=== PATIENT | female | born 1970 | race Two or more races ===

== ENCOUNTER 2016-05-21 21:17 | Emergency (ER) | payer MEDICAID ==
[~2016-05-21] VITALS: Ht 154.9 cm; Wt 81.6 kg
[~2016-05-21 21:17] MED LIST: AZITHROMYCIN250 MG ORAL; CIPROFLOXACIN500 M2 ORAL; CORICIDIN HBP1 EACH PO; IBUPROFEN600 MG ORAL; KLONOPIN1 MG ORAL
[2016-05-21] MEDS ORDERED: NKM (21:25)
[2016-05-21 21:37] VITALS: BP 151/80
--- NOTE | 2016-05-21 21:40 | Emergency Room Report ---
History of Present Illness General Chief Complaint: Hypertension Source: Patient Present Illness HPI Patient presents to weeks of symptoms. She feels chills weakness and right- sided headache. She's been urinating frequently and also has polydipsia but drinking a lot of water. Her sister has diabetes she has no diagnosis. She had high blood pressure at home and when she was checked in triage. She's under more stress at this time. Denies any chest pain, cough, sore throat, shortness of breath. The weakness is generalized and not one side or the other. Tingling on the right side of her head also. She has been treated for anxiety in the past. No SI/HI. Post menopausal 2 years. Allergies: Coded Allergies: NO KNOWN ALLERGIES (Unverified Allergy, Unknown, 04/02/15) Patient History Past Medical History: see triage record Social History: Denies: alcohol use, drug use, smoking Social History Narrative [facility] Reviewed Nursing Documentation: PMH: Agreed, PSxH: Agreed Nursing Documentation-PMH Past Medical History: No Stated History Review of Systems All Other Systems: negative except mentioned in HPI Physical Exam Vital Signs Date Time Temp Pulse Resp B/P Pulse Ox O2 Delivery O2 Flow Rate FiO2 05/21/16 21:21 97.9 87 16 151/80 100 Room Air Sp02 EP Interpretation: reviewed, normal General Appearance: well appearing, no apparent distress, GCS 15 Head: normocephalic, atraumatic Eyes: bilateral eye PERRL, bilateral eye normal inspection ENT: moist mucus membranes Neck: supple Respiratory: lungs clear, normal breath sounds Cardiovascular #1: regular rate, rhythm Cardiovascular #2: 2+ radial (R) Gastrointestinal: normal inspection, normal bowel sounds, non tender, no mass, non-distended Musculoskeletal: back normal, gait/station normal, normal range of motion Neurologic: alert, oriented x3, 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 She measured her blood pressure that was high at home. Differential includes hypertension, acute coronary syndrome, electrolye abnormalities, urinary tract infection or infection from other source, stress, anxiety, perimenopausal symptoms amongst others. Urgent/emergent evaluation to exclude acute coronary syndrome and other critical electrolyte abnormalities is undertaken. The patient will receive IV hydration and treatment with Toradol. Labs are significant for pyuria, glucose of 120. Chest x-ray and EKG are normal. The patient is improved and discussion about treatment stress and urinary tract infection was undertaken. The patient is stable for outpatient observation and treatment. Laboratory Tests Test 05/21/16 21:47 05/21/16 21:53 White Blood Count 11.3 K/UL (4.8-10.8) H Red Blood Count 4.82 M/UL (4.20-5.40) Hemoglobin 13.8 G/DL (12.0-16.0) Hematocrit 43.8 % (37.0-47.0) Mean Corpuscular Volume 91 FL (80-99) Mean Corpuscular Hemoglobin 28.6 PG (27.0-31.0) Mean Corpuscular Hemoglobin Concent 31.5 G/DL (32.0-36.0) L Red Cell Distribution Width 11.8 % (11.6-14.8) Platelet Count 366 K/UL (150-450) Mean Platelet Volume 6.6 FL (6.5-10.1) Neutrophils (%) (Auto) 54.7 % (45.0-75.0) Lymphocytes (%) (Auto) 36.6 % (20.0-45.0) Monocytes (%) (Auto) 6.1 % (1.0-10.0) Eosinophils (%) (Auto) 1.7 % (0.0-3.0) Basophils (%) (Auto) 0.9 % (0.0-2.0) Erythrocyte Sedimentation Rate 54 MM/HR (0-20) H Prothrombin Time 10.2 SEC (9.30-11.50) Prothrombin Time INR 1.0 (0.9-1.1) PTT 29 SEC (23-33) Sodium Level 141 mEQ/L (135-145) Potassium Level 4.2 mEQ/L (3.4-4.9) Chloride Level 102 mEQ/L (98-107) Carbon Dioxide Level 26 mEQ/L (20-30) Anion Gap 13 (5-15) Blood Urea Nitrogen 20 mg/dL (7-23) Creatinine 0.6 mg/dL (0.5-0.9) Estimate Glomerular Filtration Rate > 60 mL/min (>60) Glucose Level 120 mg/dL (74-106) H Lactic Acid Level 0.60 mmol/L (0.66-2.22) L Calcium Level 9.6 mg/dL (8.6-10.2) Total Bilirubin < 0.2 mg/dL (0.0-1.2) Aspartate Amino Transferase (AST) 15 U/L (5-40) Alanine Aminotransferase (ALT) 14 U/L (3-33) Alkaline Phosphatase 67 U/L (35-104) Total Creatine Kinase 85 U/L (26-140) Total Protein 7.6 g/dL (6.6-8.7) Albumin 4.3 g/dL (3.5-5.2) Globulin 3.3 g/dL Albumin/Globulin Ratio 1.3 (1.0-2.7) Urine Color Pale yellow Urine Appearance Clear Urine pH 7 (4.5-8.0) Urine Specific [place] 1.010 (1.005-1.035) Urine Protein Negative (NEGATIVE) Urine Glucose (UA) Negative (NEGATIVE) Urine Ketones Negative (NEGATIVE) Urine Occult Blood 1+ (NEGATIVE) H Urine Nitrite Negative (NEGATIVE) Urine Bilirubin Negative (NEGATIVE) Urine Urobilinogen Normal MG/DL (0.0-1.0) Urine Leukocyte Esterase 3+ (NEGATIVE) H Urine RBC 0-2 /HPF (0 - 2) Urine WBC 5-10 /HPF (0 - 2) H Urine Squamous Epithelial Cells Occasional /LPF Urine Bacteria Occasional /HPF (NONE) Microbiology Date/Time Source Procedure Growth Status 05/21/16 21:53 Nasal Nares Influenza Types A,B Antigen (YANELIS) - Final Complete EKG Diagnostic Results Rate: normal ST Segments: no acute changes Rhythm Strip Diag. Results EP Interpretation: yes Rhythm: NSR, no PVC's, no ectopy Chest X-Ray Diagnostic Results EP Interpretation: Yes Findings: no consolidation, no effusion, no pneumothorax, no acute cardiopulmonary disease Number of Views: 1 Last Vital Signs Date Time Temp Pulse Resp B/P Pulse Ox O2 Delivery O2 Flow Rate FiO2 05/22/16 00:46 97.2 87 18 120/67 98 Room Air Status: improved Disposition: HOME, SELF-CARE Condition: Improved Scripts Lorazepam* (ATIVAN*) 0.5 Mg Tablet 0.5 MG ORAL THREE TIMES A DAY Y for stress/anxiety, #6 TAB Prov: Rj Robert M.D. 05/22/16 Nitrofurantoin Monohyd/M-Cryst* (MACROBID 100 MG*) 100 Mg Capsule 100 MG ORAL EVERY 12 HOURS, #14 CAP Prov: Rj Robert M.D. 05/22/16 Rj Robert M.D. May 21, 2016 21:40
[2016-05-21] MEDS ORDERED: Ketorolac 30mg Inj IV ONE (21:45)
[2016-05-21 21:59] LABS: BASOPHILS % (AUTO) 0.9 % (0.0-2.0); EOSINOPHILS % (AUTO) 1.7 % (0.0-3.0); LYMPHOCYTES % (AUTO) 36.6 % (20.0-45.0); MEAN CORPUSCULAR HEMOGLOBIN 28.6 PG (27.0-31.0); MEAN CORPUSCULAR HGB CONC 31.5 G/DL (32.0-36.0); MEAN CORPUSCULAR VOLUME 91 FL (80-99); MEAN PLATELET VOLUME 6.6 FL (6.5-10.1); MONOCYTES % (AUTO) 6.1 % (1.0-10.0); NEUTROPHILS % (AUTO) 54.7 % (45.0-75.0); PLATELET COUNT 366 K/UL (150-450); RED BLOOD COUNT 4.82 M/UL (4.20-5.40); RED CELL DISTRIBUTION WIDTH 11.8 % (11.6-14.8); WHITE BLOOD COUNT 11.3 K/UL (4.8-10.8)
[2016-05-21 22:10] LABS: APPEARANCE,URINE CLEAR; KETONES,URINE NEGATIVE (NEGATIVE); LEUKOCYTE ESTERASE ,URINE 3+ (NEGATIVE); NITRITE,URINE NEGATIVE (NEGATIVE); PH,URINE 7 (4.5-8.0); PROTEIN,URINE NEGATIVE (NEGATIVE); UROBILINOGEN,URINE NORMAL MG/DL (0.0-1.0)
[2016-05-21 22:11] LABS: PROTHROMBIN TIME 10.2 SEC (9.30-11.50)
[2016-05-21 22:18] VITALS: BP 132/73
[2016-05-21 22:21] LABS: ALANINE AMINOTRANSFERASE 14 U/L (3-33); ALBUMIN/GLOBULIN RATIO 1.3 (1.0-2.7); ANION GAP 13 (5-15); ASPARTATE AMINO TRANSFERASE 15 U/L (5-40); CALCIUM 9.6 mg/dL (8.6-10.2); CARBON DIOXIDE 26 mEQ/L (20-30); CHLORIDE 102 mEQ/L (98-107); CREATININE 0.6 mg/dL (0.5-0.9); GLOMERULAR FILTRATION RATE > 60 mL/min (>60); HEMOLYSIS 2; POTASSIUM 4.2 mEQ/L (3.4-4.9); SODIUM 141 mEQ/L (135-145); TOTAL PROTEIN 7.6 g/dL (6.6-8.7)
[2016-05-21 22:42] LABS: RBC,URINE 0-2 /HPF (0 - 2)
[2016-05-21 22:44] LABS: BACTERIA,URINE OCCASIONAL /HPF; SQUAMOUS EPITHELIAL CELL,UR OCCASIONAL /LPF (NONE/OCC)
[2016-05-21 23:05] LABS: ERYTHROCYTE SEDIMENTATION RATE 54 MM/HR (0-20)
[2016-05-21 23:18] VITALS: BP 121/71
[2016-05-21] MEDS ORDERED: cefTRIAXone 1 GM in NS 55 ML IVPB ONE (23:30)
[2016-05-22 00:30] VITALS: BP 120/67
[2016-05-22] MEDS ORDERED: NITROFURANTOIN100 M2 ORAL (00:30)
[2016-05-22] MEDS ORDERED: ATIVAN0.5 MG ORAL (00:30)
[2016-05-22 00:46] VITALS: BP 120/67
--- NOTE | 2016-05-22 08:48 | Diagnostic Imaging Report ---
Indication: Chest pain Technique: Single portable AP view of the chest. Findings: Comparison: 04/11/2015 The bones and extra pulmonary soft tissues, cardiomediastinal silhouette, pulmonary vasculature and parenchyma, and pleural surfaces remain unremarkable. IMPRESSION: Negative portable AP chest, unchanged.
--- NOTE | 2016-05-24 15:53 | Cardiology Report ---
APPROVED REPORT EKG Measurement Heart [id number] Normal sinus rhythm Nonspecific ST abnormality Abnormal ECG
== END 2016-05-22 00:45 | disposition home or self-care (01) ==
LOC: EMR 21:38
DX: N30.00 Acute cystitis without hematuria (principal); F43.9 Reaction to severe stress, unspecified; R51 Headache; R53.1 Weakness; Z83.3 Family history of diabetes mellitus; R03.0 Elevated blood-pressure reading, without diagnosis of hypertension
CPT/HCPCS: 36415; 71010; 80053; 81003; 82550; 83605; 85025; 85610; 85651; 85730; 86710; 93005; 96374; 96375; 99284; J0696; J1885

== ENCOUNTER 2017-08-21 23:15 | Emergency (ER) | payer MEDICAID ==
[~2017-08-21] VITALS: Ht 154.9 cm; Wt 81.6 kg
[~2017-08-21 23:15] MED LIST changes: +ATIVAN0.5 MG ORAL; +NITROFURANTOIN100 M2 ORAL; +NKM
[2017-08-21] MEDS ORDERED: Lidocaine 2% Visc 15ml soln ONE (23:36)
[2017-08-21] MEDS ORDERED: Lidocaine 2% Visc 15ml soln ORAL ONE (23:45)
[2017-08-21 23:48] VITALS: BP 139/83
[2017-08-22 00:24] VITALS: BP 138/83
--- NOTE | 2017-08-22 01:01 | Emergency Room Report ---
History of Present Illness General Chief Complaint: Earache Source: Patient Present Illness HPI 47-year-old female presents ED for evaluation. Brought in by EMS stating there is a bug in her ear. Happened sometime today. Patient denies any pain. Denies any change in hearing. Denies any fevers or chills. No other aggravating relieving factors. Denies any other associated symptoms Allergies: Coded Allergies: NO KNOWN ALLERGIES (Unverified Allergy, Unknown, 04/02/15) Patient History Past Medical History: none Past Surgical History: none Pertinent Family History: none Social History: Denies: smoking, alcohol use, drug use Last Menstrual Period: "no period since 5 years ago" Now: No Immunizations: UTD Reviewed Nursing Documentation: PMH: Agreed; PSxH: Agreed Nursing Documentation-PMH Past Medical History: No Stated History Review of Systems All Other Systems: negative except mentioned in HPI Physical Exam Vital Signs Date Time Temp Pulse Resp B/P (MAP) Pulse Ox O2 Delivery O2 Flow Rate FiO2 08/21/17 23:13 97.9 16 18 139/83 98 Room Air 97.9 Sp02 EP Interpretation: reviewed, normal General Appearance: no apparent distress, alert, GCS 15, non-toxic Head: normocephalic Eyes: bilateral eye normal inspection, bilateral eye PERRL ENT: hearing grossly normal, normal pharynx, no angioedema, normal voice, other - insect in R ear canal Neck: normal inspection Respiratory: normal inspection Cardiovascular #1: normal inspection Gastrointestinal: normal inspection Rectal: deferred Genitourinary: normal inspection Musculoskeletal: normal inspection Neurologic: alert, oriented x3, responsive, motor strength/tone normal, sensory intact, speech normal Psychiatric: judgement/insight normal, memory normal, mood/affect normal, no suicidal/homicidal ideation Skin: normal inspection Lymphatic: normal inspection Procedures Additional Procedure Procedure Narrative Ear foreign body removal: Patient placed in the decubitus position on stretcher. Using otoscope I was able to visualize the foreign body in the ear canal. Viscous lidocaine injected in to ear canal. Using alligator forceps under direct visualization I am able to successfully remove the foreign body. Repeat otoscope visualization confirms foreign body is removed Medical Decision Making Diagnostic Impression: Primary Impression: Foreign body in ear Qualified Codes: T16.1XXA - Foreign body in right ear, initial encounter ER Course 47 yo F presents to ED c/o sensation of foreign body in R ear Differential-foreign body, otitis media, otitis externa Patient placed on stretcher. After initial history, physical exam reveals female in no acute distress. On otoscopic exam there is evidence of an insect in the right ear canal. viscous lidocaine injected into ear canal. Using alligator forceps I am able to remove the insect with Dr. patel. On repeat otoscopic exam no evidence of foreign body. Discussed findings with patient. Patient is safe for discharge Diagnosis-foreign body in ear Stable discharged to home. Followup with PMD. Return to ED if symptoms recur or worsen Last Vital Signs Date Time Temp Pulse Resp B/P (MAP) Pulse Ox O2 Delivery O2 Flow Rate FiO2 08/22/17 00:24 97.9 67 18 138/83 98 Room Air 97.9 Status: improved Disposition: HOME, SELF-CARE Condition: Stable Patient Instructions: Ear Foreign Body, [id number] Kush Beltran MD Aug 22, 2017 01:01
== END 2017-08-22 00:25 | disposition home or self-care (01) ==
LOC: EDBD 23:15 → EMR 23:45
DX: T16.1XXA Foreign body in right ear, initial encounter (principal); X58.XXXA Exposure to other specified factors, initial encounter; Y92.9 Unspecified place or not applicable
CPT/HCPCS: 10120; 99284